=== PATIENT | male | born 1995 | race Caucasian/White ===

== ENCOUNTER 2017-12-26 23:49 | Emergency (ER) | payer OTHER ==
[~2017-12-26] VITALS: Ht 177.8 cm; Wt 65.8 kg
[~2017-12-26 23:49] MED LIST: IBUPROFEN 800800 M1 PO; NORCO 5-325 TA1 EACH PO; PHENERGAN 25 MG25 MG PO; ZOFRAN ODT4 MG PO
[2017-12-26] MEDS ORDERED: ZYPREXA5 MG PO (23:57)
[2017-12-27] MEDS ORDERED: ULTRAM 50MG TAB50 MG PO (00:16)
[2017-12-27 00:31] VITALS: BP 122/78
== END 2017-12-27 00:32 | disposition home or self-care (01) ==
LOC: M.ERS 23:49
DX: S52.592A Other fractures of lower end of left radius, initial encounter for closed fracture (principal); J45.909 Unspecified asthma, uncomplicated; F31.9 Bipolar disorder, unspecified; F25.9 Schizoaffective disorder, unspecified; F17.210 Nicotine dependence, cigarettes, uncomplicated; Z88.8 Allergy status to other drugs, medicaments and biological substances; W18.39XA Other fall on same level, initial encounter; Y93.51 Activity, roller skating (inline) and skateboarding; Y92.89 Other specified places as the place of occurrence of the external cause; Y99.8 Other external cause status